=== PATIENT | female | born 2000 | race Caucasian/White ===

== ENCOUNTER 2021-10-06 10:42 | Inpatient (IN) ==
[2021-10-06] MEDS ORDERED: OXYTOCIN 30 UNITS/500 ML BAG IV PRN ×3 (10:46→19:46)
--- NOTE | 2021-10-06 10:51 | History & Physical Report ---
Date of Service October 06, 2021 Assessment & Plan (1) 40 weeks gestation of : (2) Encounter for induction of labor: Plan admit, iv, labs. begin pitocin. fhts categ 1. Admission and Anticipated Discharge Date Admission Date: October 06, 2021 History of Present Illness Chief Complaint: planned induction Primary Care Provider: NO PCP 21yo at 40+wks matt presents to L&D for planned induction due to postdatism. She had gonzalez ripening balloon placed last pm. It fell out this am. No rom, no vb. +FM. No ctx PNC uncomplicated. PNL rh pos, ri, gbs neg OBH: g1 GYNH: nl paps Allergies Allergy/AdvReac Type Severity Reaction Status Date / Time No Known Allergies Allergy Verified 10/06/21 11:20 Home Medications Medication Instructions Recorded Confirmed Type prenat.vits,west,poa-usrr-zuvxw 1 tab PO DAILY 02/18/21 10/06/21 History Patient History Medical History Acute torticollis No chronic diseases present Varicella vaccine Surgical History [place] teeth removed Family History Grandmother (Maternal) Hyperthyroidism Grandfather (Paternal) Cancer Grandmother (Paternal) Hypertension Mother Parkinsons Denies family history of Ovarian cancer Diabetes Lung cancer Colorectal cancer Social History Smoking Status: Never smoker Second Hand Exposure: No; Do You Dip or Chew Tobacco: No; Tobacco Cessation Education Requested by Patient: No Hx Alcohol Use: No Hx Substance Use: No Preferred Language: Serbian Private Banker Required: No Beliefs That Will Affect Care: None marital status: marital status details: Cleveland Maicol (27) [phone] Current Living Situation: Spouse Current Living Situation Comment: - Gricel current occupational status: employed 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 Other Information That Helps Us Care for You: No Feels Safe at Home: Yes Safety Concerns: Feels Safe At This Time Assistive Devices: None Review of Systems as per Subjective / HPI Physical Exam Constitutional: WD/WN, vitals as above Respiratory: normal respiratory effort, lungs clear to auscultation Cardiovascular: Rate/Rhythm: regular rate and regular rhythm Gastrointestinal (Abdomen): soft gravid nt efw 7-8# Musculoskeletal: no edema nontender calves Neurologic: grossly normal Psychiatric: A+Ox3, euthymic affect Genitourinary: Manual OB Exam: + cervical dilation 4 cm, + cervical effacement 60%, + station -2 and + amniotic fluid (AROM) clear OB Exam Monitor Tracing: + external FHT monitor used, + external uterine monitor used (no ctx), + category I and + normal FHT variability Coding Level of Care Code None Diagnoses 40 weeks gestation of Z3A.40 Encounter for induction of labor Z34.90
[2021-10-06 11:25] LABS: Hematocrit (blood only) 35.9 % (34.1-44.9); Hemoglobin 11.7 g/dl (12.0-16.0); Mean Corpuscular Hemoglobin 26.7 pg (25.0-34.0); Mean Corpuscular Hgb Conc 32.6 g/dL (32.0-36.0); Mean Corpuscular Volume 81.8 fL (80.0-100.0); Mean Platelet Volume 10.4 fL (9.4-12.3); Platelet Count 238 K/uL (130-400); RDW Coefficient of Variation 14.2 % (11.5-14.5); RDW Standard Deviation 41.3 fL (36.4-46.3); Red Blood Count 4.39 M/uL (3.93-5.22); White Blood Count 11.17 K/ul (4.8-10.8)
[2021-10-06] MEDS: LACTATED RINGER'S 1,000 ML IV PRN ×2 (11:45→13:51)
[2021-10-06] MEDS ORDERED: fentaNYL citrate 100 MCG/2 ML VIAL ONE (12:59)
[2021-10-06] MEDS ORDERED: ePHEDrine sulfate 50 MG/ML AMP ONE (12:59)
[2021-10-06] MEDS ORDERED: SODIUM CHLORIDE 0.9% INJ 10 ML VIAL ONE (12:59)
[2021-10-06] MEDS ORDERED: BUPIVACAINE 0.25% 30 ML VIAL ONE (12:59)
[2021-10-06] MEDS ORDERED: LIDOCAINE 2%/EPINEPHRINE 1:200,000 20 ML SDV ONE (12:59)
[2021-10-06] MEDS ORDERED: fentaNYL 2MCG/ML ROPIVACAINE 1.25MG/ML 100 ML BAG EPI ONE (13:00)
[2021-10-06] MEDS ORDERED: diphenhydrAMINE 50 MG/ML VIAL IV PRN (13:33)
[2021-10-06] MEDS ORDERED: ePHEDrine sulfate 50 MG/ML AMP IV PRN (13:33)
[2021-10-06] MEDS ORDERED: fentaNYL 2MCG/ML ROPIVACAINE 1.25MG/ML 100 ML BAG EPI PRN (13:33)
[2021-10-06] MEDS ORDERED: ONDANSETRON INJ 2 MG/ML 2 ML VIAL IV PRN (13:33)
[2021-10-06] MEDS ORDERED: NALOXONE HCL 1 MG in SODIUM CHLORIDE 0.9% 1000ML 1,000 ML IV PRN (13:33)
[2021-10-06] MEDS ORDERED: NALOXONE HCL 0.4 MG/1 ML VIAL/CARP IV PRN (13:33)
[2021-10-06] MEDS ORDERED: NALBUPHINE HCL INJ 10 MG/ML AMP IV PRN (13:33)
--- NOTE | 2021-10-06 13:34 | Anesthesiology Consultation ---
Date of Service October 06, 2021 Assessment & Plan Chart Review Chart Review: Patient NOT seen in Pre Admission Testing and Acceptable Risk for Labor Epidural Consults Requested none ASA ASA2 Proposed Anesthesia Anesthesia Type: Labor Epidural and CSE Risk / Benefits Reviewed With: PT / POA / Parent / Guardian, Accepts Plan and Informed Consent Obtained History Height/Weight Height: 5 ft 7 in Weight: 96.615 kg Allergies Allergy/AdvReac Type Severity Reaction Status Date / Time No Known Allergies Allergy Verified 10/06/21 11:20 Medications Home Medications Medication Instructions Recorded Confirmed Last Taken prenat.vits,west,paf-yfev-lafkv 1 tab PO DAILY 02/18/21 10/06/21 09/29/21 08:00 Active Medications Generic Name Dose Route Start Last Admin Trade Name Freq PRN Reason Stop Dose Admin Oxytocin 30 units in 500 mls @ 5 mls/hr 10/06/21 10:46 10/06/21 13:10 Pitocin IV 10/08/21 10:45 0.3 units/hr .Q24H PRN 5 mls/hr Labor Induction/Augmentation Titration Protocol 0.3 UNITS/HR Lactated Ringer's 1,000 mls @ 125 mls/hr 10/06/21 10:46 10/06/21 12:54 Lr IV 10/08/21 10:45 999 mls/hr .Q8H PRN Infusion L&D Protocol Protocol NPO Date Last Intake of Fluids: 10/06/21 Time Last Intake of Fluids: 12:00 Date Last Intake of Solids: 10/06/21 Time Last Intake of Solids: 07:00 Past Medical History Medical History Acute torticollis No chronic diseases present Varicella vaccine Exercise / Class Metabolic Activity II 4-5 Yardwork/Stairs/Walk up hill Past Family History Family History Grandmother (Maternal) Hyperthyroidism Grandfather (Paternal) Cancer Grandmother (Paternal) Hypertension Mother Parkinsons Denies family history of Ovarian cancer Diabetes Lung cancer Colorectal cancer Past Surgical History Surgical History [place] teeth removed Past Anesthesia History No Hx of Anesthesia Complications and No Family Hx of Anesthesia Complications History of PONV No Hx of PONV and No Hx of Motion Sickness Social History Smoking Status: Never smoker Do You Dip or Chew Tobacco: No Hx Alcohol Use: No Hx Substance Use: No Review of Systems no chest pain or sob Physical Exam Vital Signs Last Vital Signs Temp 36.7 C 10/06/21 13:00 Pulse 91 H 10/06/21 13:31 Resp 18 10/06/21 11:04 BP 110/70 10/06/21 13:18 Pulse Ox 100 10/06/21 13:31 ENMT Mouth: no TMJ abnormality Thyromental Distance: > or= 3.5 Finger Breadths Mallampati Class: II Neck normal visual inspection Respiratory normal respiratory effort Auscultation: lungs clear to auscultation bilaterally Cardiovascular Rate/Rhythm: regular rate and regular rhythm Musculoskeletal Spine: normal cervical ROM Neurologic moves all extremities Psychiatric Orientation: alert and oriented x 3 Testing Laboratory Results 10/06/21 11:10
--- NOTE | 2021-10-06 16:23 | Labor Progress Brief Note ---
Date of Service October 06, 2021 Subjective comfortable with epidural Assessment & Plan (1) Encounter for induction of labor: Plan good cx change, c/w pit, fhts categ 1. Admission and Anticipated Discharge Date Admission Date: October 06, 2021 Physical Exam Constitutional: WD/WN, vitals as above Genitourinary: Manual OB Exam: + cervical dilation 6 cm, + cervical effacement (75%) and + station -2 OB Exam Monitor Tracing: + external FHT monitor used, + external uterine monitor used (q2-4 pit at 9), + category I and + normal FHT variability Results & Data ([facility]) Vital Signs (Past 12 Hours) Vital Signs Temp Pulse Resp BP Pulse Ox 10/06/21 16:16 99 H 96 10/06/21 16:11 90 97 10/06/21 15:00 98.8 F 10/06/21 16:07 105 H 94 10/06/21 16:06 100 H 133/76 96 10/06/21 16:01 88 16 98 10/06/21 15:56 98 H 96 10/06/21 15:51 97 10/06/21 15:51 99 H 10/06/21 15:51 102 H 126/71 10/06/21 15:46 101 H 98 10/06/21 15:30 18 10/06/21 15:30 18 10/06/21 15:41 96 H 96 10/06/21 15:36 103 H 119/69 98 10/06/21 15:31 89 97 10/06/21 15:26 87 99 10/06/21 15:22 85 128/60 10/06/21 15:21 93 H 98 10/06/21 15:16 87 98 10/06/21 15:11 94 H 98 10/06/21 15:06 109 H 120/70 95 10/06/21 15:01 98 H 16 96 10/06/21 14:56 100 H 97 10/06/21 14:51 87 96 10/06/21 14:52 92 H 118/78 10/06/21 14:45 16 10/06/21 14:45 16 10/06/21 14:46 90 97 10/06/21 14:41 90 98 10/06/21 14:36 85 98 10/06/21 14:34 76 110/59 L 10/06/21 14:31 92 H 98 10/06/21 14:29 83 16 110/59 L 10/06/21 14:26 82 97 10/06/21 14:24 87 110/63 10/06/21 14:21 84 96 10/06/21 14:18 86 115/59 L 10/06/21 14:16 88 97 10/06/21 13:59 16 10/06/21 13:59 16 10/06/21 14:14 16 10/06/21 14:14 93 H 16 124/66 10/06/21 14:11 94 H 98 10/06/21 14:09 85 116/61 10/06/21 14:06 82 97 10/06/21 14:04 81 120/61 10/06/21 14:01 87 97 10/06/21 13:58 83 114/64 10/06/21 13:56 98 10/06/21 13:56 85 10/06/21 13:56 85 112/62 10/06/21 13:54 85 18 111/64 10/06/21 13:51 81 98 10/06/21 13:52 80 111/66 10/06/21 13:50 90 18 115/62 10/06/21 13:48 92 H 111/56 L 10/06/21 13:46 89 108/56 L 97 10/06/21 13:44 104 H 106/51 L 10/06/21 13:42 120 H 126/55 L 10/06/21 13:41 101 H 100 10/06/21 13:40 112 H 127/70 10/06/21 13:38 103 H 130/71 10/06/21 13:36 105 H 117/65 100 10/06/21 13:31 91 H 100 10/06/21 13:26 100 H 100 10/06/21 13:21 83 100 10/06/21 13:18 86 110/70 10/06/21 13:16 97 H 100 10/06/21 13:00 98.1 F 10/06/21 13:11 93 H 100 10/06/21 13:01 93 H 124/74 10/06/21 12:53 90 122/75 10/06/21 12:32 92 H 124/83 10/06/21 12:18 102 H 124/74 10/06/21 11:55 106 H 119/68 10/06/21 10:55 18 10/06/21 10:55 99.0 F 18 10/06/21 10:56 120 H 111/65 10/06/21 11:04 99.0 F 18 Coding Level of Care Code None Diagnoses Encounter for induction of labor Z34.90
--- NOTE | 2021-10-06 19:41 | Delivery Summary ---
Vaginal Delivery Summary Date of Service October 06, 2021 Vaginal Delivery Summary The patient dilated to complete and pushed to deliver a viable male infant Apgars 8 and 9 via over intact perineum. Mouth and nose bulb suctioned at perineum. Shoulders and body delivered with ease. Infant was vigorous and crying at . Cord clamped at 30 seconds of life and infant to maternal abdomen where the cord was then doubly clamped and cut. Placenta delivered spontaneously and intact, three-vessel cord. Hemostasis achieved with dilute pitocin and uterine massage. Cervix and sulci intact. laceration of left labia reapproximated with 4-0 vicryl for excellent hemostasis. EBL 300 cc. Mother and baby stable in recovery. [facility] Vaginal Delivery Charge Delivery Type Details:
[2021-10-06] MEDS ORDERED: BENZOCAINE 20% AER SPR 82.5 GM CAN EXT PRN (19:46)
[2021-10-06] MEDS ORDERED: DIPHTHERIA/TETANUS/PERTUSSIS 0.5 ML SYR/VIAL IM ONE (19:46)
[2021-10-06] MEDS ORDERED: HYDROCORTISONE ACETATE 25 MG SUPP PR PRN (19:46)
[2021-10-06] MEDS ORDERED: ACETAMINOPHEN 325 MG TAB PO PRN (19:46)
[2021-10-06] MEDS ORDERED: OXYTOCIN 20 UNITS in LACTATED RINGER'S 1,000 ML IV SCH (19:46)
[2021-10-06] MEDS ORDERED: oxyCODONE/ACETAMINOPHEN 5mg/325mg TAB PO PRN (19:46)
[2021-10-06] MEDS: DOCUSATE SODIUM 100 MG CAP PO SCH (21:02)
[2021-10-07] MEDS: IBUPROFEN 600 MG TAB PO PRN ×4 (05:00→22:07)
--- NOTE | 2021-10-07 05:23 | Obstetrical Progress Note ---
Date of Service <Gaby Dee DO - Last Filed: 10/07/21 06:33> October 07, 2021 Assessment & Plan <Gaby Dee DO - Last Filed: 10/07/21 06:33> (1) care and examination: Plan s/p PPD 1: -Vital signs reviewed and WNL, Tmax at 37.2 -Hemoglobin reviewed, 11.7 (8/16) -B+, GBS-, rubella immune -Encourage ambulation, monitor and treat pain with motrin PRN, monitor lochia -Continue regular diet -Encourage breast feeding <Sunita Weiss MD, FACOG - Last Filed: 10/07/21 07:46> (1) care and examination: Day #:: 1 Subjective <Gaby Dee DO - Last Filed: 10/07/21 06:33> Lamar is a 21 y/o female who is PPD #1 following at 40 5/7 weeks. She reports feeling well overall this morning. Admits to some abdominal cramping & pain well managed on analgesics. Also notes some back pain at site of epidural placement. Voiding without issue, states she occasionally has some burning with urination. Tolerating meals overnight and able to ambulate some. Has persistent lochia with some improvement this morning. Currently breast feeding. Constitutional: no fever, no chills or no sweats Respiratory: no cough, no dyspnea or no wheezing Cardiovascular: no chest pain, no palpitations or no calf pain Breast: no breast pain Neurologic: no headache(s) Physical Exam <Gaby Dee DO - Last Filed: 10/07/21 06:33> Constitutional WD/WN, vitals as above no acute distress Respiratory no respiratory distress Auscultation: lungs clear to auscultation bilaterally; no rales, no rhonchi and no wheezes Cardiovascular RRR, no murmur, no edema Extremities: no calf tenderness and no edema Negative Tonia's sign bilaterally. Gastrointestinal (Abdomen) Inspection/Auscultation: normal bowel sounds Genitourinary Uterine fundus firm, palpable below the umbilicus. Results & Data ([facility]) <Gaby Dee DO - Last Filed: 10/07/21 06:33> Vital Signs (Past 12 Hours) Vital Signs Temp Pulse Pulse Resp BP BP Pulse Ox 10/07/21 03:00 36.9 C 98 H 16 109/80 99 10/06/21 22:00 36.9 C 112 H 20 92/57 L 100 10/06/21 21:31 36.8 C 18 10/06/21 21:00 36.8 C 16 10/06/21 20:30 18 10/06/21 20:15 16 10/06/21 18:52 37.1 C 18 10/06/21 20:00 16 10/06/21 19:45 18 10/06/21 19:30 37.1 C 18 10/06/21 21:31 113 H 132/59 L 10/06/21 21:15 125 H 130/77 10/06/21 21:00 122 H 131/71 10/06/21 20:46 109 H 128/60 10/06/21 20:31 123 H 148/69 H 10/06/21 20:15 115 H 116/61 10/06/21 20:01 105 H 130/60 10/06/21 19:46 141 H 154/67 H 10/06/21 19:31 127 H 152/69 H 98 10/06/21 19:26 152 H 97 10/06/21 19:22 115 H 154/82 H 10/06/21 19:21 139 H 99 10/06/21 19:16 115 H 99 10/06/21 19:11 136 H 100 10/06/21 19:06 108 H 120/63 100 10/06/21 19:01 99 H 100 10/06/21 18:56 108 H 100 10/06/21 18:52 100 H 125/64 10/06/21 18:51 106 H 100 10/06/21 18:46 119 H 100 10/06/21 18:41 115 H 99 10/06/21 18:36 113 H 99 10/06/21 18:37 120 H 130/59 L 10/06/21 18:31 101 H 97 10/06/21 18:26 98 H 98 10/06/21 18:00 16 10/06/21 18:00 16 10/06/21 18:22 110 H 124/61 10/06/21 18:21 101 H 98 10/06/21 18:16 120 H 99 10/06/21 18:11 102 H 97 10/06/21 18:06 114 H 115/64 97 10/06/21 18:01 96 H 97 10/06/21 17:56 107 H 96 10/06/21 17:51 88 120/62 96 10/06/21 17:49 90 94 10/06/21 17:46 94 H 95 10/06/21 17:41 93 H 94 10/06/21 17:42 93 H 94 10/06/21 17:36 96 10/06/21 17:36 120 H 10/06/21 17:36 116 H 112/56 L 10/06/21 17:31 94 H 96 10/06/21 17:26 98 H 94 10/06/21 17:21 95 10/06/21 17:21 121 H 10/06/21 17:21 102 H 120/58 L O2 Del Method 10/07/21 03:00 Room Air 10/06/21 22:00 Room Air 10/06/21 21:31 10/06/21 21:00 10/06/21 20:30 10/06/21 20:15 10/06/21 18:52 10/06/21 20:00 10/06/21 19:45 10/06/21 19:30 10/06/21 21:31 10/06/21 21:15 10/06/21 21:00 10/06/21 20:46 10/06/21 20:31 10/06/21 20:15 10/06/21 20:01 10/06/21 19:46 10/06/21 19:31 10/06/21 19:26 10/06/21 19:22 10/06/21 19:21 10/06/21 19:16 10/06/21 19:11 10/06/21 19:06 10/06/21 19:01 10/06/21 18:56 10/06/21 18:52 10/06/21 18:51 10/06/21 18:46 10/06/21 18:41 10/06/21 18:36 10/06/21 18:37 10/06/21 18:31 10/06/21 18:26 10/06/21 18:00 10/06/21 18:00 10/06/21 18:22 10/06/21 18:21 10/06/21 18:16 10/06/21 18:11 10/06/21 18:06 10/06/21 18:01 10/06/21 17:56 10/06/21 17:51 10/06/21 17:49 10/06/21 17:46 10/06/21 17:41 10/06/21 17:42 10/06/21 17:36 10/06/21 17:36 10/06/21 17:36 10/06/21 17:31 10/06/21 17:26 10/06/21 17:21 10/06/21 17:21 10/06/21 17:21 <Sunita Weiss MD, FACOG - Last Filed: 10/07/21 07:46> Co-Signing Physician Notes Resident Physician Supervision Note: I was present with Dr. Dee during the history and exam. I discussed the case with the resident and agree with the findings and plan as documented in the note. Any exceptions or clarifications are listed here: stable routine care. breast/rh pos/Ri. Documented By: Sunita Weiss MD, FACOG Resident Activity Tracking <Gaby Dee, - Last Filed: 10/07/21 06:33> Resident Involvement: Resident Care Provided Care Provided: OB Delivery
[2021-10-07] MEDS: PRENATAL VITAMIN 1 TAB PO SCH (08:59)
[2021-10-07] MEDS: DOCUSATE SODIUM 100 MG CAP PO SCH ×2 (09:00→22:07)
--- NOTE | 2021-10-07 09:05 | Anesthesia Procedure Note ---
Date of Service October 07, 2021 Anesthesia Post Epidural Note Vital Signs Vital Signs: Temp Pulse Resp BP Pulse Ox O2 Del Method 36.9 C 98 H 16 109/80 99 10/07/21 03:00 10/07/21 03:00 10/07/21 03:00 10/07/21 03:00 10/07/21 03:00 10/07/21 03:00 Pain Intensity Abdomen: Pain Intensity: 2 Notes Mental Status: alert / awake / arousable and participated in evaluation Nausea / Vomiting: adequately controlled Pain: adequately controlled Airway Patency, RR, SpO2: stable & adequate BP & HR: stable & adequate Hydration State: stable & adequate Anesthetic Complications: no major complications apparent and Pt Satisfied with anesthetic care Epidural: Removed without complications and With tip intact
--- NOTE | 2021-10-08 06:15 | Obstetrical Progress Note ---
Date of Service <Gaby Dee DO - Last Filed: 10/08/21 07:00> October 08, 2021 Assessment & Plan <DO Alan Segovia Last Filed: 10/08/21 07:00> (1) 40 weeks gestation of : (2) Encounter for supervision of normal intrauterine in primigravida, antepartum: (3) Abnormal weight gain: Plan s/p PPD 2: -Vital signs reviewed and WNL, Tmax at 37.2 -Hemoglobin reviewed, 11.7 (10/06) -B+, GBS-, rubella immune -Encourage ambulation, monitor and treat pain with motrin PRN, monitor lochia -Continue regular diet -Encourage breast feeding -Discussed plan for discharge <Jennifer Butterfield, - Last Filed: 10/08/21 08:04> (1) 40 weeks gestation of : (2) Encounter for supervision of normal intrauterine in primigravida, antepartum: (3) Abnormal weight gain: Subjective <Gaby Dee DO - Last Filed: 10/08/21 07:00> Lamar is a 21 y.o. female who is PPD #2 from at 40 5/7 weeks. Patient was seen and examined at bedside. States she is doing well overall this morning. Has had some abdominal cramping and has vaginal pain at the site of her stitches, states pain is currently 5/10 but has not had pain medicine since before bed last night. States that back pain from yesterday has since resolved. Still notes burning with urination. Tolerated meals overnight with no nausea or vomiting. Has been able to ambulate some. Voiding without issue. Has been passing gas and has not had a bowel movement yet. Is currently . Has noticed decreased lochia compared to yesterday, denies any clots. Desires to be discharged today. Constitutional: no fever, no chills or no sweats Respiratory: no cough, no dyspnea or no wheezing Cardiovascular: no chest pain, no palpitations or no calf pain Breast: no breast pain Neurologic: no headache(s) Physical Exam <Gaby Dee DO - Last Filed: 10/08/21 07:00> Constitutional WD/WN, vitals as above no acute distress Respiratory no respiratory distress Auscultation: lungs clear to auscultation bilaterally; no rales, no rhonchi and no wheezes Cardiovascular RRR, no murmur, no edema Extremities: no calf tenderness and no edema Gastrointestinal (Abdomen) Inspection/Auscultation: normal bowel sounds Genitourinary Uterine fundus is firm, palpable below umbilicus. Results & Data ([facility]) <Gaby Dee, - Last Filed: 10/08/21 07:00> Vital Signs (Past 12 Hours) Vital Signs Temp Pulse Resp BP Pulse Ox O2 Del Method 10/08/21 00:40 36.9 C 87 18 112/60 96 Room Air 10/07/21 20:10 36.5 C 96 H 18 101/66 99 Room Air <Jennifer Butterfield, - Last Filed: 10/08/21 08:04> Co-Signing Physician Notes Resident Physician Supervision Note: I was present with Dr. Dee during the history and exam. I discussed the case with the resident and agree with the findings and plan as documented in the note. Any exceptions or clarifications are listed here: PPD#2 doing well, reviewed DC instructions. Followup 6w. Documented By: Jennifer Butterfield DO
[2021-10-08] MEDS: DOCUSATE SODIUM 100 MG CAP PO SCH (08:42)
[2021-10-08] MEDS: PRENATAL VITAMIN 1 TAB PO SCH (08:42)
[2021-10-08] MEDS: IBUPROFEN 600 MG TAB PO PRN (08:42)
== END 2021-10-08 13:45 | disposition home or self-care (01) | DRG 807 ==
LOC: 4S1 10:42 → 4E2 22:00

== ENCOUNTER 2022-11-22 07:38 | Inpatient (IN) ==
[2022-11-22] MEDS ORDERED: LIDOCAINE 1% LOCAL 20 ML VIAL INFIL PRN (08:24)
[2022-11-22] MEDS ORDERED: DINOPROSTONE 10 MG INSERT PV ONE (08:24)
[2022-11-22] MEDS ORDERED: OXYTOCIN 30 UNITS/500 ML BAG IV PRN ×3 (08:24→16:14)
--- NOTE | 2022-11-22 08:36 | History & Physical Report ---
Date of Service November 22, 2022 Assessment & Plan (1) Post-term , 40-42 weeks of gestation: Plan: 22 yo at 40.1wks, scheduled IOL VSS Afebrile FHR reassuring GBS neg Cervix favorable, Plan to admit, monitor, labs, Oxytocin per protocol, then AROM Continue to monitor (2) Short interval between pregnancies affecting in third trimester, antepartum: Admission and Anticipated Discharge Date Admission Date: November 22, 2022 History of Present Illness Primary Care Provider: NO PCP Patient is a 22 yo AT 40.1 WKS, scheduled IOL for postdates She has been having irregular contractions for the last 2 days, No LOF/VB +FM Her has been uncomplicated except: 1) Close interval, FT in 09/2021 2) Marginal cord insertion, normal growth, EFW: 4178 gr on 11/17, 92nd percentile, delivered 8 lb 8oz 3) Right kidney pelvicalectasis of 6-7 mm. Left kidney within normal limits of 0.25 cm. GBS negative Allergies Allergy/AdvReac Type Severity Reaction Status Date / Time No Known Allergies Allergy Verified 11/18/21 13:10 Home Medications Medication Instructions Recorded Confirmed Type Gummies 2 ea PO DAILY 11/10/22 11/22/22 History Patient History Medical History Acute torticollis No chronic diseases present Varicella vaccine Surgical History [place] teeth removed Family History Grandmother (Maternal) Hyperthyroidism Grandfather (Paternal) Cancer Grandmother (Paternal) Hypertension Mother Parkinsons Denies family history of Ovarian cancer Diabetes Lung cancer Colorectal cancer Social History Smoking Status: Never smoker Second Hand Exposure: No; Do You Dip or Chew Tobacco: No; Hx Alcohol Use: No Hx Substance Use: No Preferred Language: French Merchandise Marker Required: No Beliefs That Will Affect Care: None marital status: marital status details: Cleveland Milian (27) [phone] Current Living Situation: Spouse Current Living Situation Comment: - Gricel current occupational status: employed 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 Other Information That Helps Us Care for You: No Feels Safe at Home: Yes Safety Concerns: Feels Safe At This Time Assistive Devices: None OB History FT in 09/2021, 8 lb 8 oz, delivered "quick" per her ENVIRONMENTAL MARKETER History No h/o STD's, no SV, Chlam/ GC Review of Systems as per Subjective / HPI Physical Exam Constitutional: WD/WN, vitals as above Gastrointestinal (Abdomen): normal bowel sounds, soft, nontender, no hepatosplenomegaly (Gravid, Nikolay 8-9lb) Genitourinary: normal external appearance OB Exam Abdomen: + vertex Manual OB Exam: + cervical dilation 3 cm, + cervical effacement 20% and + station -2 OB Exam Monitor Tracing: + external uterine monitor used and + category I Results & Data Vital Signs (Past 12 Hours) Vital Signs Temp Pulse Resp BP 11/22/22 08:08 36.7 C 20 11/22/22 07:55 123 H 137/74
[2022-11-22] MEDS: LACTATED RINGER'S 1,000 ML IV PRN ×2 (08:57→13:38)
[2022-11-22 09:11] LABS: Hemoglobin 11.3 g/dl (12.0-16.0); Mean Corpuscular Hemoglobin 26.3 pg (25.0-34.0); Mean Corpuscular Hgb Conc 32.3 g/dL (32.0-36.0); Mean Corpuscular Volume 81.4 fL (80.0-100.0); Mean Platelet Volume 11.3 fL (9.4-12.4); Platelet Count 216 K/uL (130-400); RDW Coefficient of Variation 14.7 % (11.5-14.5); RDW Standard Deviation 43.5 fL (36.4-46.3); White Blood Count 9.02 K/ul (4.8-10.8)
[2022-11-22 09:17] LABS: Alanine Aminotransferase 11 U/L (7-52); Albumin Globulin Ratio 1.2 (0.9-2); Albumin Level 3.3 gm/dl (3.4-5.0); Alkaline Phosphatase 287 U/L (34-104); Anion Gap 7 (3-11); Aspartate Aminotransferase 13 U/L (13-39); BUN Creatinine Ratio 16.7 (10-20); Bilirubin,Total 0.5 mg/dl (0.2-1.0); Blood Urea Nitrogen 8 mg/dl (6-23); Calcium 8.5 mg/dl (8.6-10.3); Carbon Dioxide 23 mmol/L (21-32); Chloride 105 mmol/L (98-107); Creatinine Clr Calc Pharmacy 229.2 ml/min; Est GFR (African American) > 150.0 ml/min; Est GFR (Non-African American) 140.2 ml/min; Globulin 2.7 gm/dl (2.5-4.0); Glucose 82 mg/dl (70-99(Fasting)); Potassium 3.7 mmol/L (3.5-5.1); Sodium 135 mmol/L (136-145)
[2022-11-22] MEDS ORDERED: BUPIVACAINE 0.25% PF 30 ML VIAL ONE ×2 (13:32→16:03)
[2022-11-22] MEDS ORDERED: SODIUM CHLORIDE 0.9% PF INJ 10 ML VIAL ONE ×2 (13:32→16:03)
[2022-11-22] MEDS ORDERED: LIDOCAINE 2%/EPINEPHRINE 1:200,000 20 ML PF ONE ×2 (13:32→16:03)
[2022-11-22] MEDS ORDERED: fentaNYL citrate PF 100 MCG/2 ML VIAL ONE ×2 (13:32→16:03)
[2022-11-22] MEDS ORDERED: ePHEDrine sulfate 50 MG/ML AMP ONE ×2 (13:32→16:03)
[2022-11-22] MEDS ORDERED: fentaNYL 2MCG/ML ROPIVACAINE 1.25MG/ML 100 ML BAG EPI ONE ×2 (13:33→16:03)
[2022-11-22] MEDS ORDERED: diphenhydrAMINE 50 MG/ML VIAL IV PRN (14:05)
[2022-11-22] MEDS ORDERED: NALOXONE HCL 0.4 MG/1 ML VIAL/CARP IV PRN (14:05)
[2022-11-22] MEDS ORDERED: fentaNYL citrate PF 100 MCG/2 ML VIAL EPI PRN (14:05)
[2022-11-22] MEDS ORDERED: fentaNYL citrate PF 100 MCG/2 ML VIAL EPI STA (14:05)
[2022-11-22] MEDS ORDERED: LIDOCAINE 2%/EPINEPHRINE 1:200,000 20 ML PF EPI STA (14:05)
[2022-11-22] MEDS ORDERED: LIDOCAINE 2% MPF LOCAL 5 ML VIAL EPI PRN (14:05)
[2022-11-22] MEDS ORDERED: ePHEDrine sulfate 50 MG/ML AMP IV PRN (14:05)
[2022-11-22] MEDS ORDERED: SODIUM CHLORIDE 0.9% PF INJ 10 ML VIAL EPI PRN (14:05)
[2022-11-22] MEDS ORDERED: NALOXONE HCL 1 MG in SODIUM CHLORIDE 0.9% 1,000 ML IV PRN (14:05)
[2022-11-22] MEDS ORDERED: ROPIVACAINE 0.5% PF 5 MG/ML 20 ML VIAL EPI PRN (14:05)
[2022-11-22] MEDS ORDERED: NALBUPHINE HCL INJ 10 MG/ML AMP IV PRN (14:05)
[2022-11-22] MEDS ORDERED: BUPIVACAINE 0.25% PF 30 ML VIAL EPI STA (14:05)
[2022-11-22] MEDS ORDERED: fentaNYL 2MCG/ML ROPIVACAINE 1.25MG/ML 100 ML BAG EPI PRN (14:05)
[2022-11-22] MEDS ORDERED: BUPIVACAINE 0.25% PF 30 ML VIAL EPI PRN (14:05)
[2022-11-22] MEDS ORDERED: SODIUM CHLORIDE 0.9% PF INJ 10 ML VIAL EPI STA (14:05)
--- NOTE | 2022-11-22 14:05 | Anesthesiology Consultation ---
Date of Service November 22, 2022 Assessment & Plan (1) Encounter for pre-operative examination: Chart Review Chart Review: Patient NOT seen in Pre Admission Testing and Acceptable Risk for Labor Epidural Consults Requested none History Height/Weight Height: 5 ft 7 in Weight: 103.419 kg Allergies Allergy/AdvReac Type Severity Reaction Status Date / Time No Known Allergies Allergy Verified 11/18/21 13:10 Medications Home Medications Medication Instructions Recorded Confirmed Last Taken Gummies 2 ea PO DAILY 11/10/22 11/22/22 11/21/22 Active Medications Generic Name Dose Route Start Last Admin Trade Name Freq PRN Reason Stop Dose Admin Lactated Ringer's 1,000 mls @ 150 mls/hr 11/22/22 08:24 11/22/22 13:38 Lr IV 11/24/22 08:23 999 mls/hr .[id number] PRN Administration L&D Protocol Protocol Oxytocin 30 units in 500 mls @ 14 mls/hr 11/22/22 08:52 11/22/22 13:10 Pitocin IV 11/24/22 08:51 0.84 units/hr .Q24H PRN 14 mls/hr Labor Induction/Augmentation Titration Protocol 0.84 UNITS/HR Past Medical History Medical History Acute torticollis No chronic diseases present Varicella vaccine Past Family History Family History Grandmother (Maternal) Hyperthyroidism Grandfather (Paternal) Cancer Grandmother (Paternal) Hypertension Mother Parkinsons Denies family history of Ovarian cancer Diabetes Lung cancer Colorectal cancer Past Surgical History Surgical History [place] teeth removed Social History Smoking Status: Never smoker Do You Dip or Chew Tobacco: No Hx Alcohol Use: No Hx Substance Use: No substance use type: does not use Physical Exam Vital Signs Last Vital Signs Temp 98.2 F 11/22/22 12:00 Pulse 82 11/22/22 14:02 Resp 20 11/22/22 14:00 BP 114/61 11/22/22 14:02 Pulse Ox 99 11/22/22 14:01 Testing Laboratory Results 11/22/22 08:38 11/22/22 08:38 Blood Type B Positive 11/22/22 08:38 Antibody Screen NEGATIVE 11/22/22 08:38
--- NOTE | 2022-11-22 14:54 | Obstetrical Progress Note ---
Date of Service November 22, 2022 Assessment & Plan Admission and Anticipated Discharge Date Admission Date: November 22, 2022 Subjective Patient is reevaluated. She has received epidural and comfortable now VE: 4/ 70%/ -2, bulging bag, AROM'ed clear fluid FHR categ I [place] ctxs q 2-4 min, Oxytocin at 14 miu/min Continye to monitor closely Results & Data Vital Signs (Past 12 Hours) Vital Signs Temp Pulse Resp BP Pulse Ox 11/22/22 08:08 36.7 C 20 11/22/22 14:51 96 11/22/22 14:51 78 11/22/22 14:47 86 11/22/22 14:47 128/67 11/22/22 14:46 97 11/22/22 14:46 81 11/22/22 14:41 97 11/22/22 14:41 99 H 11/22/22 14:42 100 H 11/22/22 14:42 104/55 L 11/22/22 14:37 18 11/22/22 14:37 18 11/22/22 14:32 20 11/22/22 14:32 20 11/22/22 14:38 97 H 11/22/22 14:38 115/62 11/22/22 14:27 36.8 C 11/22/22 14:36 97 11/22/22 14:36 87 11/22/22 14:31 97 11/22/22 14:31 89 11/22/22 14:31 102/58 L 11/22/22 14:31 91 H 11/22/22 14:31 104/58 L 11/22/22 14:29 91 H 11/22/22 14:29 100/56 L 11/22/22 14:27 86 11/22/22 14:27 115/64 11/22/22 14:26 99 11/22/22 14:26 96 H 11/22/22 14:25 103 H 11/22/22 14:25 137/77 11/22/22 14:23 98 H 11/22/22 14:23 141/79 H 11/22/22 14:21 98 11/22/22 14:21 91 H 11/22/22 14:21 131/76 11/22/22 14:16 98 11/22/22 14:16 95 H 11/22/22 14:11 97 11/22/22 14:11 94 H 11/22/22 14:06 97 11/22/22 14:06 79 11/22/22 14:00 20 11/22/22 14:00 20 11/22/22 14:01 99 11/22/22 14:01 82 11/22/22 14:02 82 11/22/22 14:02 114/61 11/22/22 13:30 20 11/22/22 13:30 20 11/22/22 13:00 18 11/22/22 13:00 18 11/22/22 13:11 94 H 11/22/22 13:11 128/58 L 11/22/22 12:30 18 11/22/22 12:30 18 11/22/22 11:40 20 11/22/22 11:40 20 11/22/22 12:00 16 11/22/22 12:00 36.8 C 16 11/22/22 12:00 90 11/22/22 12:00 118/62 11/22/22 11:15 20 11/22/22 11:15 36.6 C 20 11/22/22 11:12 86 11/22/22 11:12 120/66 11/22/22 10:45 18 11/22/22 10:45 18 11/22/22 09:45 20 11/22/22 09:45 20 11/22/22 10:22 82 11/22/22 10:22 130/60 11/22/22 09:15 20 11/22/22 09:15 20 11/22/22 09:28 104 H 11/22/22 09:28 124/68 11/22/22 07:55 123 H 137/74
[2022-11-22] MEDS ORDERED: HYDROCORTISONE ACETATE 25 MG SUPP PR PRN (16:14)
[2022-11-22] MEDS ORDERED: DIPHTHERIA/TETANUS/PERTUSSIS Vaccine (Tdap, Age 7+yrs) 0.5mL SYR/VL IM ONE (16:14)
[2022-11-22] MEDS ORDERED: MEASLES, MUMPS & RUBELLA VIRUS VACCINE (MMR) VIAL SQ ONE (16:14)
[2022-11-22] MEDS ORDERED: BENZOCAINE 20% SPRY 85 APPLN/85 GM CAN EXT PRN (16:14)
[2022-11-22] MEDS ORDERED: bisacodyL 10 MG SUPP PR PRN (16:14)
[2022-11-22] MEDS ORDERED: ACETAMINOPHEN 325 MG TAB PO PRN (16:14)
--- NOTE | 2022-11-22 16:17 | Delivery Summary ---
Vaginal Delivery Summary Date of Service November 22, 2022 Vaginal Delivery Summary Patient was found to be fully dilated and desires to push. She pushed with one contraction and delivered the head over an intact perineum. The shoulders with minimal traction. The baby was handed off to the mother. The cord was clampedx2 and cut at 1 minute. The vagina and perineum were checked and found to be intact with no laceration. The placenta was delivered spontaneously as intact and complete. The uterus was explored and found to be empty. EBL was 200 ml. The fundus was firm The baby was a viable male infant, Apgars 9/9, the weight is pending The mother and the baby tolerated the procedure well. No complications happened and I was present during whole procedure.
--- NOTE | 2022-11-22 18:54 | Anesthesia Procedure Note ---
Date of Service November 22, 2022 Anesthesia Post Epidural Note Vital Signs Vital Signs: Temp Pulse Resp BP Pulse Ox 98.2 F 130 H 18 106/55 L 98 11/22/22 14:27 11/22/22 18:50 11/22/22 18:05 11/22/22 18:50 11/22/22 16:01 Notes Mental Status: alert / awake / arousable and participated in evaluation Nausea / Vomiting: adequately controlled Pain: adequately controlled Airway Patency, RR, SpO2: stable & adequate BP & HR: stable & adequate Hydration State: stable & adequate Neuraxial Anesthesia: was administered and sensory block is resolving Anesthetic Complications: no major complications apparent and Pt Satisfied with anesthetic care Epidural: Removed without complications and With tip intact
[2022-11-22] MEDS ORDERED: SODIUM CHLORIDE 0.9% 250 ML IV PRN (19:14)
[2022-11-22] MEDS: DOCUSATE SODIUM 100 MG CAP PO SCH (20:04)
[2022-11-22] MEDS: IBUPROFEN 600 MG TAB PO PRN (22:22)
[2022-11-23] MEDS: IBUPROFEN 600 MG TAB PO PRN ×4 (03:19→18:25)
[2022-11-23 06:31] LABS: Hematocrit (blood only) 31.8 % (37.0-47.0); Hemoglobin 10.1 g/dl (12.0-16.0); Mean Corpuscular Hemoglobin 26.4 pg (25.0-34.0); Mean Corpuscular Hgb Conc 31.8 g/dL (32.0-36.0); Mean Platelet Volume 11.2 fL (9.4-12.4); Platelet Count 190 K/uL (130-400); RDW Coefficient of Variation 14.6 % (11.5-14.5); RDW Standard Deviation 43.4 fL (36.4-46.3); Red Blood Count 3.83 M/uL (4.20-5.40); White Blood Count 11.32 K/ul (4.8-10.8)
[2022-11-23] MEDS: PRENATAL VITAMIN 1 TAB PO SCH (08:38)
[2022-11-23] MEDS: DOCUSATE SODIUM 100 MG CAP PO SCH ×2 (08:38→22:59)
[2022-11-23] MEDS: FERROUS SULFATE 325 MG TAB PO SCH (08:38)
[2022-11-23] MEDS ORDERED: bisacodyL 5 MG TABEC PO SCH (20:00)
[2022-11-24] MEDS: IBUPROFEN 600 MG TAB PO PRN ×2 (02:20→08:56)
[2022-11-24 06:20] LABS: Hematocrit (blood only) 30.5 % (37.0-47.0); Hemoglobin 9.6 g/dl (12.0-16.0)
[2022-11-24] MEDS: PRENATAL VITAMIN 1 TAB PO SCH (08:56)
[2022-11-24] MEDS: FERROUS SULFATE 325 MG TAB PO SCH (08:56)
[2022-11-24] MEDS: DOCUSATE SODIUM 100 MG CAP PO SCH (08:56)
--- NOTE | 2022-11-24 09:28 | Obstetrical Progress Note ---
Date of Service November 24, 2022 Assessment & Plan (1) Normal course: Pt doing well No complaints d/c home with instructions Results & Data Vital Signs (Past 12 Hours) Vital Signs Temp Pulse Resp BP Pulse Ox O2 Del Method 11/24/22 08:45 36.9 C 105 H 16 122/79 99 Room Air 11/23/22 23:06 36.4 C L 104 H 18 134/77 97 Room Air
== END 2022-11-24 11:40 | disposition home or self-care (01) | DRG 807 ==
LOC: 4S1 07:41 → 4E2 19:40